=== PATIENT | female | born 1970 | race Caucasian/White ===

== ENCOUNTER → 2020-04-20 | Outpatient (CLI) | payer OTHER ==
[2020-04-20 15:21] LABS: ABSOLUTE NEUTROPHILS 4.7 thou/uL (1.4-8.2); BASOPHILS 0.6 % (0.0-2.0); EOSINOPHILS 1.1 % (0.0-3.0); HEMATOCRIT 41.1 % (37.0-47.0); HEMOGLOBIN 14.1 gm/dL (12.0-15.0); LYMPHOCYTES 32.9 % (24.0-44.0); MCH 30.3 pg (26.0-34.0); MCHC 34.3 g/dL (28.0-37.0); MCV 88.5 fL (80.0-100.0); MONOCYTES 8.7 % (1.0-8.0); PLATELET COUNT 422 thou/uL (150-400); POLYS 56.7 % (36.0-66.0); RBC 4.65 mil/uL (4.20-5.00); RDW 12.9 % (10.5-14.5); WBC 8.3 thou/uL (4.0-11.0)
[2020-04-20 19:39] LABS: ALBUMIN 4.4 g/dL (3.4-5.0); ANION GAP 7 mmol/L (7-16); BUN 23 mg/dL (7-18); CALCIUM 9.6 mg/dL (8.5-10.1); CHLORIDE 95 mmol/L (98-107); CHOLESTEROL 307 mg/dL (<200); CO2 32 mmol/L (21-32); CREATININE 1.7 mg/dL (0.6-1.0); GLUCOSE 83 mg/dL (74-106); HDL CHOLESTEROL 86 mg/dL (>40); LDL CHOLESTEROL 176 mg/dL (<100); SGOT 16 U/L (15-37); SGPT 18 U/L (30-65); SODIUM 134 mmol/L (136-145); TC:HDL 3.6 Ratio (Not establshd); TOTAL BILIRUBIN 0.4 mg/dL (0.2-1.0); TOTAL PROTEIN 8.5 g/dL (6.4-8.2); TRIGLYCERIDE 228 mg/dL (<150); VLDL 46 mg/dL (<40)
[2020-04-20 19:57] LABS: POTASSIUM 2.9 mmol/L (3.5-5.1)
== END ==
LOC: LAB 14:07
PROVIDERS: ATTEND Nurse Practitioner
DX: M25.511 Pain in right shoulder (principal)

== ENCOUNTER → 2020-08-24 | Outpatient (CLI) | payer OTHER | LOC: RAD 15:16 | PROVIDERS: ATTEND Nurse Practitioner | DX: M47.22 Other spondylosis with radiculopathy, cervical region (principal); M25.78 Osteophyte, vertebrae; M48.02 Spinal stenosis, cervical region ==

== ENCOUNTER → 2020-09-07 | Outpatient (CLI) | payer OTHER ==
[~2020-09-07] MED LIST: EMERGEN-C 1,01000 MG PO; IBUPROFEN 400400 M1 PO; IMITREX100 MG PO; LEXAPRO 10 MG T10 M1 PO; NEURONTIN 300M300 M2 PO
== END ==
LOC: MRI 10:34
PROVIDERS: ATTEND Nurse Practitioner
DX: M48.02 Spinal stenosis, cervical region (principal); M89.38 Hypertrophy of bone, other site; M54.12 Radiculopathy, cervical region; M54.2 Cervicalgia; R29.898 Other symptoms and signs involving the musculoskeletal system

== ENCOUNTER → 2020-09-12 | Outpatient (CLI) | payer OTHER ==
[~2020-09-12] VITALS: Ht 157.5 cm; Wt 45.4 kg
--- NOTE | ~2020-09-12 | HPC ---
[facility] [place] [address] PAIN MANAGEMENT CONSULTATION Name: PADMA MORENO Room #: REG [facility] Letha.#: [id number] Admission: 09/12/20 Attend Phys: Ross Rendon DO Discharge: Date of : 74 Report #: [id number] CC: Ross GRIMALDO DATE OF SERVICE: 09/12/2020 CHIEF COMPLAINT: Neck pain, upper back pain, right upper extremity pain with paresthesias. HISTORY OF PRESENT ILLNESS: As you know, the patient is an extremely pleasant 50-year-old female referred to the clinic for neck pain, right upper extremity pain with paresthesias and upper back pain. The patient states that pain has been present for years. The pain initially began as more cervical and bilateral trapezial pain, but has progressed towards more right shoulder and now down the right arm in classic dermatomal distribution. She has had workup in the past involving the possible rotator cuff injury in the right shoulder. Apparently, this has been ruled out. She has ultimately undergone MRI of the cervical spine, which showed changes, significant enough, the patient was referred to our clinic to discuss interventional treatment options. The patient reports today her pain is continuous with intermittent exacerbations and flares. She states pain is described more as a burning, shooting, gnawing, sharp, tender, numbness and tingling. She places current pain score anywhere from 3-4/10, daily average anywhere from 3-4/10 worst pain has been is 8-9/10. The patient indicates pain is exacerbated with upper body exercises, riding in vehicles for long periods of time, sitting at a computer, excessive lifting and "craning her neck." Pain is improved with the use of Imitrex, lying flat traction techniques and massage. She has been referred to our service to discuss treatment options for cervical radiculopathy. PAST MEDICAL HISTORY: 1. History of hypokalemia. 2. Migraine headaches. 3. History of wrist fractures. 4. Emotional problems. 5. Gastroesophageal reflux disease. PAST SURGICAL HISTORY: 1. Tonsillectomy and adenoidectomy. 2. Dental implants. SOCIAL HISTORY: The patient denies tobacco use. Denies IV or illicit drug use. Admits to occasional alcohol beverage. She is employed as a registered nurse. She is working, not receiving workmen's compensation nor is she trying to obtain disability benefits. She is not in litigation in regards to pain. She is unaccompanied at today's visit. REVIEW OF SYSTEMS: Positive for nose bleeds, irritable bowel syndrome with intermittent constipation, varicose veins, frequent and recurrent headaches and migraines, depression, neck pain, upper back pain and right upper extremity pain with paresthesias. All other review of systems negative per 12-point review of systems other than those listed in history of present illness. Pain impact score 17 of 70 indicating mild interference of daily activities secondary to pain. ALLERGIES: BENADRYL AND NEOMYCIN. CURRENT MEDICATIONS: Ascorbic acid 1000 mg once a day, ibuprofen 400 mg p.r.n., sumatriptan 100 mg p.r.n., escitalopram 10 mg once a day. IMAGING: MRI cervical spine obtained 09/07/2020 shows C2-C3 unremarkable, C3-C4 shows minimal disk bulge, no central canal nor neural foraminal stenosis. C4-C5, mild generalized disk bulge with slight effacement of the ventral thecal sac without central canal stenosis, moderate right neural foraminal narrowing due to facet arthropathy and uncovertebral joint hypertrophy. This is near the exiting C5 nerve root. No significant left foraminal narrowing. C5-C6, mild generalized disk osteophyte complex causing effacement of the ventral thecal sac not touching the cord. Central canal remains 10 mm. There is severe neural foraminal stenosis present due to uncovertebral joint hypertrophy bilaterally compromising the exiting C6 nerve roots bilaterally. C6-C7 shows mild generalized disk bulge, no central canal stenosis, moderate left neural foraminal narrowing. There is only mild right neural foraminal narrowing. C7-T1 unremarkable. PHYSICAL EXAMINATION: VITAL SIGNS: Blood pressure 108/90, pulse is 93, respiratory rate 14 and unlabored. The patient is 99% on room air. Height 5 feet 2 inches tall, weight 100 pounds, BMI calculated 18.3. GENERAL: Well-developed, well-nourished, well-hydrated 50-year-old female appearing her stated age. She is in no acute distress, awake, alert and oriented x 3. Current pain score is 3-4/10. HEENT: Normocephalic, atraumatic. Pupils equal, round and reactive to light. Extraocular muscles are intact. Sclerae nonicteric without injection. No anisocoria. Pupils are reactive and not dilated or constricted. LUNGS: Clear, no wheeze, rhonchi or rales. CARDIOVASCULAR: Appears regular. ABDOMEN: Soft. EXTREMITIES: Show no clubbing, no cyanosis, no edema. MUSCULOSKELETAL: Upper extremity strength appears symmetrical 5/5, intact to light touch from C5 through T1 dermatomes. Deep tendon reflexes are symmetrical at biceps, brachialis and triceps. Spurling's test is positive on the right. Cervical provocation testing including extension, rotation to the right cause intensification of pain radiation of symptoms in a dermatomal distribution. There is palpatory tenderness over the paraspinal musculature of the upper thoracic musculature of the rhomboids, the trapezius and the splenius capitis. There is no spinous process tenderness. ASSESSMENT: 1. Cervical radiculopathy. 2. Severe neural foraminal stenosis of the cervical spine. 3. Facet arthropathy of cervical spine. 4. Displacement of cervical intervertebral disk with radiculopathy. 5. Cervical degeneration. PLAN: 1. Based on today's physical exam and history the patient has provided, the description the patient uses in regards to pain as well as the distribution she is experiencing pain upon, the likely source of the patient's pain is a cervical radiculopathy. The patient reports pain that radiates from the cervical spine down both arms, right greater than left, all the way to the thumb and first digit consistent with a C6 dermatomal distribution. This is confirmed with recent MRI, which shows severe neural foraminal stenosis at the C5-C6 level with impingement upon the C6 nerve roots bilaterally. We reviewed the patient's MRI with her today and correlated to the findings of this MRI to her current distribution of symptoms. After this discussion of how the findings in the cervical region equate to the distribution of pain she is experiencing in the right upper extremity and intermittent in the left, we then discussed treatment options. The following was discussed with the patient today. We discussed physical therapy, stretching exercises and traction techniques as a treatment course. This could improve overall pain as her symptoms are related to neural foraminal stenosis secondary to uncovertebral hypertrophy and any traction techniques may actually improves symptoms for a transient period of time and maybe with long-term use even a protracted period of time. We discussed medication management adding neuropathic pain medications such as amitriptyline, nortriptyline, Cymbalta, Lyrica or gabapentin as a treatment option. We discussed cervical epidural injections under fluoroscopic guidance and finally surgical options to address foraminal stenosis. After reviewing the risks and benefits of all proposed treatment options, the patient chose to begin with medication management and a cervical epidural injection. 2. The patient has been advised risks and benefits of a cervical epidural injection. These risks include but are not necessarily limited to bleeding, bruising, infection, worsening pain, no relief of pain, also risk of temporary or permanent muscle weakness, temporary or permanent nerve damage, possible paralysis, post-dural puncture headache and . The patient states understood and wished to proceed. 3. The patient will start gabapentin 300 mg dose 1 tab p.o. at bedtime for 3 nights. If no side effects such as sleepiness, disorientation, confusion, mental slowing and no improvement in symptoms, escalate the dose to 600 mg for 3 nights. Again if no improvement in symptoms and no side effects, then escalate to 900 mg at night. If continued to experience the pain during the daytime hours then after a 9-day trial of medication with escalating doses in the evening. She will then start morning doses 1 tab p.o. q.a.m. continuing the 900 mg at night for 3 days, escalating dose until reaching efficacy or side effects she could not tolerate. She was given #120 of the gabapentin 300 mg tablets in a titration in written form to follow in hopes of improving pain. Prescription was sent via e-scribed to local pharmacy. 4. We plan to see the patient back in followup visit in 1 month for possible next in the series of cervical epidural injections and to make any adjustments in medication management necessary. We are hopeful the patient does very well with combination of treatment. We plan to see her back in 30 days. 5. We wish to thank Dr. Sheila Hamm for the referral of the patient to our clinic. We will keep you apprised of her response to treatment as we address cervical radiculopathy secondary to severe neural foraminal stenosis at the C5-C6 level. Again, we wish to thank you for the opportunity to see this patient in consultation. PROCEDURE NOTE DESCRIPTION OF PROCEDURE: C7-T1 cervical epidural steroid injection under fluoroscopic guidance. This is the first procedure of the first series that the patient is undergoing. After obtaining written consent, the patient was taken back to the fluoroscopy suite and placed in a prone position with separate pillows under chest and forehead to decrease the cervical lordosis. The skin overlying the cervical area was prepped and draped in an aseptic fashion. The C6-C7 vertebral interspace was identified by AP fluoroscopy. The skin and subcutaneous tissue overlying the target site of injection was anesthetized using 3 mL of 1% lidocaine. A 20-gauge, 3-1/2 inch Tuohy needle was advanced under fluoroscopic guidance toward the epidural space using a midline approach. The epidural space was identified using a loss of resistance to air technique. After negative aspiration for heme or cerebrospinal fluid, a total of 1 mL of Omnipaque was injected. A cervical epidurogram was confirmed using AP and oblique fluoroscopy. After negative aspiration for heme or cerebrospinal fluid, 5 mL of a solution containing 2 mL of 40 mg per mL, 80 mg total triamcinolone along with 3 mL of lidocaine 1% was injected in increments. Contrast spread was noted from posterior epidural space. The needle was then retracted approximately shelter and the needle track was flushed with 1 mL of 1% lidocaine. There were no apparent new sensory deficits in the upper extremities present following the procedure. A sterile bandage was placed over the injection site. The heart rate, pulse oximetry and blood pressure were continuously monitored after the procedure. There were no apparent complications. The patient tolerated the procedure well and was carefully escorted in the recovery room in stable condition. After meeting discharge criteria, the patient was discharged home. By: [id number] Ross Rendon DO /caden
[2020-09-12 15:17] VITALS: BP 108/90
--- NOTE | 2020-09-12 15:26 | NUR ---
Pain Clinic Assessment: 1. History of Osteoarthritis: C SPINE History of Rheumatoid Arthritis: Not Applicable 2. Height: 5 ft. 2 in. 157.5 cm. Weight: 100.0 lb. oz. 45.360 kg. Patient's BMI: 18.3 3. Vital Signs: BP: 108/90 Pulse: 93 Resp: 14 Temp: 02 Sat: 99 ECG Mon: 4. Pain Intensity: 3-4 5. Fall Risk: Dizziness: Needs help standing or walking: Fallen in the last 3 months: Fall risk comments: 6. Patient on Blood Thinner: None 7. History of Hypertension: N 8. Opioid Therapy greater than 6 weeks: N Opiate Contract Signed: 9. Risk Assessment Tool Provided: 10. Functional Assessment Tool: 11. Recreational Drug Use: Never Drug Type: Tobacco Use: Never Smoker Tobacco Type: Amount or Packs/day: How Many Years: Alcohol Use: Yes Frequency: Weekly Quant: 1-2
== END | disposition home or self-care (01) ==
LOC: PAIN 07:00
PROVIDERS: ATTEND Anesthesiology Pain Medicine
DX: M50.10 Cervical disc disorder with radiculopathy, unspecified cervical region (principal); M47.22 Other spondylosis with radiculopathy, cervical region; M48.02 Spinal stenosis, cervical region; G89.29 Other chronic pain; F32.9 Major depressive disorder, single episode, unspecified; G43.909 Migraine, unspecified, not intractable, without status migrainosus; K21.9 Gastro-esophageal reflux disease without esophagitis; Z98.890 Other specified postprocedural states; Z79.899 Other long term (current) drug therapy; Z88.8 Allergy status to other drugs, medicaments and biological substances

== ENCOUNTER → 2020-10-31 | Outpatient (CLI) | payer OTHER ==
[~2020-10-31] MED LIST changes: +GABAPENTIN100 MG PO
[2020-10-31 15:47] VITALS: BP 127/95
--- NOTE | 2020-10-31 15:53 | NUR ---
Pain Clinic Assessment: 1. History of Osteoarthritis: C SPINE History of Rheumatoid Arthritis: Not Applicable 2. Height: ft. in. cm. Weight: lb. oz. kg. Patient's BMI: 3. Vital Signs: BP: 127/95 Pulse: 75 Resp: 14 Temp: 02 Sat: 99 ECG Mon: 4. Pain Intensity: 3-4 5. Fall Risk: Dizziness: N Needs help standing or walking: N Fallen in the last 3 months: N Fall risk comments: 6. Patient on Blood Thinner: None 7. History of Hypertension: N 8. Opioid Therapy greater than 6 weeks: N Opiate Contract Signed: 9. Risk Assessment Tool Provided: 10. Functional Assessment Tool: 11. Recreational Drug Use: Never Drug Type: Tobacco Use: Never Smoker Tobacco Type: Amount or Packs/day: How Many Years: Alcohol Use: Yes Frequency: Quant:
--- NOTE | 2020-11-05 10:13 | HPC ---
[facility] [address] [email or web address] [address] PAIN MANAGEMENT CONSULTATION Name: PADMA MORENO Room #: REG Est[facility] Jenkins#: [id number] Admission: 10/31/20 Attend Phys: Ross Rendon DO Discharge: Date of : 74 Report #: [id number] THIS REPORT FOR: cc: Sheila Hamm DNP, Mary E. DNP Johnson, James E. DO ~ DATE OF SERVICE: 10/31/2020 CHIEF COMPLAINT: Neck pain, upper back pain, right upper extremity pain with paresthesias. HISTORY OF PRESENT ILLNESS: As you know, the patient is an extremely pleasant 50-year-old female who has returned today in followup visit with recurrence of cervical radiculopathy. She is placing her current pain score at 3-4/10. She reports with the previous cervical epidural injection provided at our visit of 09/12/2020, she received 75% improvement in overall pain. Unfortunately, her symptoms have begun to slowly reoccur. She believes she may have done something during her exercise routine that may have exacerbated her symptoms. She returns today to undergo a cervical epidural injection. She is indicating pain is constant, burning pressure, radiating, sharp and shooting, exacerbated with upper body exercise, a long car ride, sitting at a computer "craning her neck" and lifting, improves with medications, lying down, traction, massage and cervical epidural injections. She returns today for the next in the series of cervical epidural injections. She is denying injury or trauma or any changes in medical history. ALLERGIES: BENADRYL AND NEOMYCIN. CURRENT MEDICATIONS: Ascorbic acid, ibuprofen, sumatriptan, escitalopram. SOCIAL HISTORY: The patient denies tobacco, denies IV or illicit drug use. Admits occasional alcohol beverage. She is employed as a registered nurse, working, not receiving workmen's compensation, unaccompanied today. IMAGING: No new imaging available. PHYSICAL EXAMINATION: VITAL SIGNS: Blood pressure 127/95, pulse 75, respiratory rate 14 and unlabored. The patient is 99% on room air. GENERAL: Well-developed, well-nourished, well-hydrated, thin, 50-year-old female appearing stated age. She is placing current pain score at 3-4/10. HEENT: Normocephalic, atraumatic. Pupils are equal and round. The patient is wearing a mask in compliance with COVID-19 regulations. EXTREMITIES: Show no clubbing, no cyanosis. No appreciable edema. MUSCULOSKELETAL: Deep tendon reflexes remain symmetrical at biceps, brachioradialis and triceps. Spurling's test positive on the right. [address] [address] PAIN MANAGEMENT CONSULTATION Name: GOYOEmmaPADMA Room #: REG [facility].#: [id number] Admission: 10/31/20 Attend Phys: Ross Rendon DO Discharge: Date of : 74 Report #: [id number] extremity strength is symmetrical 5/5, intact to light touch from C5 through T1 dermatomes. ASSESSMENT: 1. Symptomatic cervical radiculopathy. 2. Severe neural foraminal stenosis of the cervical spine. 3. Facet arthropathy of cervical spine. 4. Displacement of cervical intervertebral disk with radiculopathy. 5. Cervical degeneration. PLAN: 1. The patient returns today in followup visit having noted excellent benefit with previous cervical epidural injection reporting up to 75% improvement in overall pain. Unfortunately, her symptoms have begun to return. She is now placing pain score at a level of 3-4/10. She returns today in followup visit for the next in the series of cervical epidural injections. The patient and I discussed the risks and the benefits of the procedure. These risks include, but are not necessarily limited to bleeding, bruising, infection, worsening pain, no relief of pain, also risk of temporary or permanent muscle weakness, temporary or permanent nerve damage, possible paralysis and . The patient states understood and wished to proceed. 2. No medication changes made at today's visit. The patient will continue current medical therapy as prior prescribed. 3. We will see the patient back in followup visit on an as-needed basis for possible next in the series of cervical epidural injections. We are hopeful that the patient will see good and prolonged benefit with today's cervical injection. DESCRIPTION OF PROCEDURE: C7-T1 cervical epidural steroid injection under fluoroscopic guidance. This is the second procedure of the first series that the patient is undergoing. After obtaining written consent, the patient was taken back to the fluoroscopy suite and placed in a prone position with separate pillows under chest and forehead to decrease cervical lordosis. The skin overlying the cervical area was prepped and draped in an aseptic fashion. The C7-T1 vertebral interspace was identified by AP fluoroscopy. The skin and subcutaneous tissue overlying the target site of injection was anesthetized using 3 mL of 1% lidocaine. A 20-gauge 3-1/2 inch Tuohy needle was advanced under fluoroscopic guidance toward the epidural space using a midline approach. The epidural space was identified using a loss of resistance to air technique. After negative aspiration for heme or cerebrospinal fluid, a total of 1 mL of Omnipaque was injected. A cervical epidurogram was confirmed using AP and oblique fluoroscopy. After negative aspiration for heme or cerebrospinal fluid, 5 mL of [address] [address] PAIN MANAGEMENT CONSULTATION Name: PADMA MORENO Room #: REG [facility]#: [id number] Admission: 10/31/20 Attend Phys: Ross Rendon DO Discharge: Date of : 74 Report #: [id number] a solution containing 2 mL 40 mg per mL, 80 mg total triamcinolone along with 3 mL lidocaine 1% was injected in increments. Contrast spread was noted from posterior epidural space. The needle was then retracted approximately assisted and the needle track was flushed with 1 mL of 1% lidocaine. There were no apparent new sensory deficits in the upper extremities present following the procedure. A sterile bandage was placed over the injection site. The heart rate, pulse oximetry and blood pressure were continuously monitored after the procedure. There were no apparent complications. The patient tolerated the procedure well and was carefully escorted in the recovery room in stable condition. After meeting discharge criteria, the patient was discharged home. <ELECTRONICALLY SIGNED> By: Ross Rendon DO 11/05/20 [id number] [id number] 40 Ross Rendon DO /nt
== END | disposition home or self-care (01) ==
LOC: PAIN 06:59
PROVIDERS: ATTEND Anesthesiology Pain Medicine
DX: M50.10 Cervical disc disorder with radiculopathy, unspecified cervical region (principal); M48.02 Spinal stenosis, cervical region; M47.22 Other spondylosis with radiculopathy, cervical region; Z98.890 Other specified postprocedural states; Z79.899 Other long term (current) drug therapy; Z88.8 Allergy status to other drugs, medicaments and biological substances

== ENCOUNTER → 2020-12-05 | Outpatient (CLI) | payer OTHER ==
[2020-12-05 09:00] LABS: CALCIUM 9.5 mg/dL (8.5-10.1); CREATININE 1.7 mg/dL (0.6-1.0); TOTAL BILIRUBIN 0.3 mg/dL (0.2-1.0); TOTAL PROTEIN 7.9 g/dL (6.4-8.2)
[2020-12-05 09:11] LABS: POTASSIUM 2.6 mmol/L (3.5-5.1)
[2020-12-05 15:54] LABS: ABSOLUTE NEUTROPHILS 4.3 thou/uL (1.4-8.2); BASOPHILS 0.9 % (0.0-2.0); EOSINOPHILS 1.5 % (0.0-3.0); HEMATOCRIT 40.8 % (37.0-47.0); HEMOGLOBIN 13.1 gm/dL (12.0-15.0); LYMPHOCYTES 32.4 % (24.0-44.0); MCH 29.6 pg (26.0-34.0); MCV 92.5 fL (80.0-100.0); MONOCYTES 9.9 % (1.0-8.0); PLATELET COUNT 399 thou/uL (150-400); POLYS 55.3 % (36.0-66.0); RBC 4.41 mil/uL (4.20-5.00); RDW 13.3 % (10.5-14.5); WBC 7.7 thou/uL (4.0-11.0)
== END ==
LOC: LAB 08:08
PROVIDERS: ATTEND Obstetrics & Gynecology
DX: Z01.419 Encounter for gynecological examination (general) (routine) without abnormal findings (principal)

== ENCOUNTER → 2020-12-18 | Outpatient (CLI) | payer OTHER | LOC: ULTRA 12-11 14:19 | PROVIDERS: ATTEND Obstetrics & Gynecology | DX: N93.9 Abnormal uterine and vaginal bleeding, unspecified (principal) ==

== ENCOUNTER → 2021-01-29 | Outpatient (CLI) | payer OTHER ==
[~2021-01-29] VITALS: Ht 157.5 cm; Wt 45.4 kg
[~2021-01-29] MED LIST changes: +LYRICA 50 MG50 MG PO
[2021-01-29 14:28] VITALS: BP 128/90
--- NOTE | 2021-01-29 14:33 | NUR ---
Pain Clinic Assessment: 1. History of Osteoarthritis: C SPINE History of Rheumatoid Arthritis: Not Applicable 2. Height: 5 ft. 2 in. 157.5 cm. Weight: 100.0 lb. oz. 45.360 kg. Patient's BMI: 18.3 3. Vital Signs: BP: 128/90 Pulse: 79 Resp: 18 Temp: 02 Sat: 99 ECG Mon: 4. Pain Intensity: 5 5. Fall Risk: Dizziness: N Needs help standing or walking: N Fallen in the last 3 months: Y Fall risk comments: 6. Patient on Blood Thinner: None 7. History of Hypertension: N 8. Opioid Therapy greater than 6 weeks: N Opiate Contract Signed: 9. Risk Assessment Tool Provided: LOW-1 10. Functional Assessment Tool: 11. Recreational Drug Use: Never Drug Type: Tobacco Use: Never Smoker Tobacco Type: Amount or Packs/day: How Many Years: Alcohol Use: Yes Frequency: Quant:
--- NOTE | 2021-01-30 08:12 | HPC ---
[facility] [address] [place] [address] PAIN MANAGEMENT CONSULTATION Name: PADMA MORENO Room #: REG [facility]#: [id number] Admission: 01/29/21 Attend Phys: Ross Rendon DO Discharge: Date of : 74 Report #: [id number] THIS REPORT FOR: cc: Sheila Hamm DNP, Mary E. DNP Johnson, James E. DO ~ DATE OF SERVICE: 01/29/2021 CHIEF COMPLAINT: Neck pain, upper back pain, right upper extremity pain with paresthesias. HISTORY OF PRESENT ILLNESS: As you know, the patient is a very pleasant 51-year-old female returning in followup visit with recurrence of cervical radicular symptoms involving the neck and right upper extremity. She is placing pain score around 5/10. She describes the pain as constant, burning pressure radiating, sharp and shooting when describing symptoms. Pain is exacerbated with upper body exercise, long car ride, sitting at the computer, craning her neck and lifting. Pain is improved with medications, lying down, traction, massage therapy and cervical epidural injections. The patient reports previous cervical epidural injection gave 60% improvement in overall pain lasting for greater than 2 months. She is very pleased with response to this injection, returning today to undergo the next in the series. She denies any new injury or trauma that may have led to symptom reoccurrence. She does note exacerbation of symptoms mainly with upper body exercises that she has been participating in of late. ALLERGIES: BENADRYL AND NEOMYCIN. CURRENT MEDICATIONS: Ascorbic acid, ibuprofen, sumatriptan, escitalopram and gabapentin. SOCIAL HISTORY: The patient denies tobacco, IV or illicit drug use. She admits occasional alcohol beverage. She is employed as a registered nurse, working, not receiving workmen's compensation, unaccompanied today. IMAGING: No new imaging available. PHYSICAL EXAMINATION: VITAL SIGNS: Blood pressure 128/90, pulse 79, respiratory rate 18 and unlabored. The patient is 99% on room air. Height 5 feet 2 inches tall, weight 100 pounds, BMI calculated 18.3. GENERAL: Well-developed, well-nourished, well-hydrated 51-year-old female appearing her stated age, pain is rated today 5/10. HEENT: Normocephalic, atraumatic. Pupils equal, round and reactive. EXTREMITIES: Show no clubbing, no cyanosis, no edema. MUSCULOSKELETAL: Upper extremity strength remains symmetrical 5/5. She has [facility] [address] [place] [address] PAIN MANAGEMENT CONSULTATION Name: PADMA MORENO Room #: REG [facility]#: [id number] Admission: 01/29/21 Attend Phys: Ross Rendon DO Discharge: Date of : 74 Report #: [id number] excellent service desk specialist strength bilaterally. Spurling's test positive left, negative right. Muscle bulk and tone is equal and symmetrical in upper extremities. Remains intact to light touch. ASSESSMENT: 1. Symptomatic cervical radiculopathy. 2. Severe neural foraminal stenosis of the cervical spine. 3. Facet arthropathy of the cervical spine. 4. Displacement of cervical intervertebral disk with radiculopathy. 5. Cervical degeneration. PLAN: 1. The patient returns today in followup visit requesting to undergo a cervical epidural injection under fluoroscopic guidance. The patient reports excellent benefit with the cervical epidural injection at her last visit reporting 60% improvement in pain or greater. Unfortunately, her symptoms have begun to return. She returns today in followup visit to undergo next in the series of cervical epidural injections. She has been advised risks and benefits of the procedure. She states understood and wished to proceed. 2. The patient was provided a prescription of Lyrica 50 mg dose 1 tab p.o. at bedtime for the next 7 nights, then increase to 2 tabs p.o. at bedtime for 7 nights. If no side effects including somnolence, decrease mental acuity, disorientation or confusion, then escalate the dose to 1 tab in the morning and 2 tablets at night. She was given #90 tablets. She will discontinue her gabapentin at this time if she is experiencing side effects to the medication. We are hopeful she will see less side effects with the Lyrica, but gain analgesic benefit and improvement in overall side effects symptoms. A prescription was sent via [facility] to local pharmacy with refills. 3. We will see the patient back in followup visit on an as needed basis for the next in the series of cervical epidural injections. We are hopeful the patient will once again see good and prolonged benefit with today's procedure. PROCEDURE NOTE DESCRIPTION OF PROCEDURE: C7-T1 cervical epidural steroid injection under fluoroscopic guidance. This is the third procedure of the first series that the patient is undergoing. After obtaining written consent, the patient was taken back to the fluoroscopy suite and placed in a prone position with separate pillows under chest and forehead to decrease cervical lordosis. The skin overlying the cervical area was prepped and draped in an aseptic fashion. The C7-T1 vertebral interspace was identified by AP fluoroscopy. The skin and subcutaneous tissue overlying the target site of injection was anesthetized using 3 mL of 1% lidocaine. [address] [address] PAIN MANAGEMENT CONSULTATION Name: PADMA MORENO Room #: REG [facility]#: [id number] Admission: 01/29/21 Attend Phys: Ross Rendon DO Discharge: Date of : 74 Report #: [id number] A 20 gauge 3-/12 Tuohy needle was advanced under fluoroscopic guidance toward the epidural space using a paramedian approach. The epidural space was identified using a loss of resistance to air technique. After negative aspiration for heme or cerebrospinal fluid, a total of 1 mL of Omnipaque was injected. A cervical epidurogram was confirmed using AP and oblique fluoroscopy. After negative aspiration for heme or cerebrospinal fluid, 5 mL of solution containing 2 mL 40 mg per mL, 80 mg total triamcinolone along with 3 mL lidocaine 1% was injected in increments. Contrast spread was noted from posterior epidural space. The needle was then retracted approximately care home and the needle track was flushed with 1 mL of 1% lidocaine. There were no apparent new sensory deficits in the upper extremities present following the procedure. A sterile bandage was placed over the injection site. The heart rate, pulse oximetry and blood pressure were continuously monitored after the procedure. There were no apparent complications. The patient tolerated the procedure well and was carefully escorted in the recovery room in stable condition. After meeting discharge criteria, the patient was discharged home. <ELECTRONICALLY SIGNED> By: Ross Rendon DO 01/30/21 0812 1605 45 Ross Rendon DO /nt
== END | disposition home or self-care (01) ==
LOC: PAIN 06:56
PROVIDERS: ATTEND Anesthesiology Pain Medicine
DX: M50.10 Cervical disc disorder with radiculopathy, unspecified cervical region (principal); M48.02 Spinal stenosis, cervical region; M47.22 Other spondylosis with radiculopathy, cervical region; G89.29 Other chronic pain; Z98.890 Other specified postprocedural states; Z79.899 Other long term (current) drug therapy

== ENCOUNTER → 2021-03-19 | Outpatient (CLI) | payer OTHER ==
[~2021-03-19] VITALS: Ht 157.5 cm; Wt 45.4 kg
[2021-03-19 14:38] VITALS: BP 129/89
--- NOTE | 2021-03-19 14:41 | NUR ---
Pain Clinic Assessment: 1. History of Osteoarthritis: C SPINE History of Rheumatoid Arthritis: Not Applicable 2. Height: 5 ft. 2 in. 157.5 cm. Weight: 100.0 lb. oz. 45.360 kg. Patient's BMI: 18.3 3. Vital Signs: BP: 129/89 Pulse: 97 Resp: 16 Temp: 02 Sat: 99 ECG Mon: 4. Pain Intensity: 3 5. Fall Risk: Dizziness: N Needs help standing or walking: N Fallen in the last 3 months: N Fall risk comments: 6. Patient on Blood Thinner: None 7. History of Hypertension: N 8. Opioid Therapy greater than 6 weeks: N Opiate Contract Signed: 9. Risk Assessment Tool Provided: LOW-1 10. Functional Assessment Tool: 11. Recreational Drug Use: Never Drug Type: Tobacco Use: Never Smoker Tobacco Type: Amount or Packs/day: How Many Years: Alcohol Use: Yes Frequency: Weekly Quant: 6
--- NOTE | 2021-03-20 07:59 | HPC ---
[facility] [place] [address] PAIN MANAGEMENT CONSULTATION Name: PADMA MORENO [facility]: [facility] [id number] Admission: 03/19/21 Attend Phys: Ross Rendon DO Discharge: Date of : 74 Report #: [id number] THIS REPORT FOR: cc: Sheila Hamm DNP, Mary E. DNP Johnson, James E. DO ~ DOC #: [id number] DATE OF SERVICE: 03/19/2021 DATE OF SERVICE: 03/19/2021 REFERRING PHYSICIAN: Sheila Hamm NP CHIEF COMPLAINT: Neck pain, right upper extremity pain with paresthesias. HISTORY OF PRESENT ILLNESS: As you know, the patient is an extremely pleasant 51-year-old female returning in followup visit with recurrence of cervical radicular symptoms involving the neck, right upper extremity. She is placing her current pain score at 3/10. She indicates no injury or trauma that may led to symptom development. She has been participating in daily activities and continues to participate in her exercise program. She believes that her symptoms may be exacerbated with certain activities during her exercise program such as side planks, which put strain on the area. She has had recurrence of symptoms, no inciting injury or trauma. She was placing current pain score 3/10. She returns today in followup visit requesting to undergo cervical epidural injection under fluoroscopic guidance and discuss other treatment options if available. ALLERGIES: BENADRYL AND NEOMYCIN. CURRENT MEDICATIONS: Ascorbic acid, ibuprofen, sumatriptan, escitalopram and gabapentin. SOCIAL HISTORY: The patient denies tobacco, IV or illicit drug use. Admits to occasional alcohol beverage. She is employed as a registered nurse, working, not receiving workmen's compensation, unaccompanied today. IMAGING: No new imaging available. PHYSICAL EXAMINATION: VITAL SIGNS: Blood pressure 129/89, pulse is 97, respiratory rate 16 and unlabored. The patient 97% on room air. Height 5 feet 2 inches tall, weight 100 pounds, BMI calculated 18.3. GENERAL: Well-developed, well-nourished, well-hydrated 51-year-old female appearing stated age, pain is rated today at 3/10. [address] [address] PAIN MANAGEMENT CONSULTATION Name: PADMA MORENO Room #: REG [facility]#: [id number] Admission: 03/19/21 Attend Phys: Ross Rendon DO Discharge: Date of : 74 Report #: [id number] HEENT: Normocephalic, atraumatic. Pupils equal, round and responsive to light. She is wearing a mask in compliance with COVID-19 regulations. EXTREMITIES: Show no clubbing, no cyanosis, no edema. MUSCULOSKELETAL: Spurling's test remains positive. The muscle bulk and tone in the upper extremities equal and symmetrical. Intact to light touch from C5 through T1 dermatomes. Butter Fat Tester strength remains normal. Deep tendon reflexes are unchanged and symmetrical. ASSESSMENT: 1. Symptomatic cervical radiculopathy. 2. Severe neural foraminal stenosis of the cervical spine. 3. Displacement of cervical intervertebral disk with radiculopathy. 4. Facet arthropathy of cervical spine. 5. Cervical degeneration. PLAN: 1. The patient returns today in followup visit to discuss treatment options to address cervical radiculopathy. We had tried the patient on conservative medication management in the form of Lyrica, which unfortunately caused side effects, but did not provide much in the way of improvement. We moved onto epidural injections for which the patient does receive good benefit, the most recent providing 70% improvement in overall pain with a slow and progressive return of symptoms without inciting injury or trauma. She returns requesting the next in the series of these cervical epidural injections. She has been advised the risks and benefits of the procedure, states understood and wished to proceed. 2. The patient has noted some improvement with traction techniques in the past. We would recommend the patient continue with traction at home. We will be providing her a prescription for cervical traction device. We will recommend a very specific type of device and gave her information today. We will set the patient for a traction device fitting and training. She can then do the traction up to 2-3 times a day if she felt it was beneficial. Prescription was provided to the patient in written form requesting the traction device to be provided for home use. 3. No medication changes made at today's visit. The patient will continue current medical therapy as prior prescribed. 4. We will plan to see the patient back in followup visit on an as needed basis. We are hopeful the combination of cervical epidural injection and the use of home traction would be of great benefit for the patient. She will keep us apprised of response. DESCRIPTION OF PROCEDURE: C7-T1 cervical epidural steroid injection under fluoroscopic guidance. This is the first procedure of the second series that the patient is undergoing. [facility] [address] [place] [address] PAIN MANAGEMENT CONSULTATION Name: PDAMA MORENO Room #: REG [facility] Letha#: [id number] Admission: 03/19/21 Attend Phys: Ross Rendon DO Discharge: Date of : 74 Report #: [id number] After obtaining written consent, the patient was taken back to the fluoroscopy suite and placed in a prone position with separate pillows under chest and forehead to decrease cervical lordosis. The skin overlying the cervical area was prepped and draped in an aseptic fashion. The C7-T1 vertebral interspace was identified by AP fluoroscopy. The skin and subcutaneous tissue overlying the target site of injection was anesthetized using 3 mL of 1% lidocaine. A 20-gauge 3-1/2 inch Tuohy needle was advanced under fluoroscopic guidance toward the epidural space using a midline approach. The epidural space was identified using a loss of resistance to air technique. After negative aspiration for heme or cerebrospinal fluid, a total of 0.5 mL of Omnipaque was injected. A cervical epidurogram was confirmed using AP and oblique fluoroscopy. After negative aspiration for heme or cerebrospinal fluid, 5 mL of a solution containing 2 mL 40 mg per mL 80 mg total triamcinolone along with 3 mL of lidocaine 1% was injected in increments. Contrast spread was noted from posterior epidural space. The needle was then retracted approximately intermediate and the needle track was flushed with 1 mL of 1% lidocaine. There were no apparent new sensory deficits in the upper extremities present following the procedure. A sterile bandage was placed over the injection site. The heart rate, pulse oximetry and blood pressure were continuously monitored after the procedure. There were no apparent complications. The patient tolerated the procedure well and was carefully escorted in the recovery room in stable condition. After meeting discharge criteria, the patient was discharged home. Ross Rendon DO JEJ/SCHUYLER <ELECTRONICALLY SIGNED> By: Ross Rendon DO 03/20/21 0759 1518 0003 Ross Rendon DO /nt
== END | disposition home or self-care (01) ==
LOC: PAIN 11:05
PROVIDERS: ATTEND Anesthesiology Pain Medicine
DX: M50.10 Cervical disc disorder with radiculopathy, unspecified cervical region (principal); M48.02 Spinal stenosis, cervical region; M47.22 Other spondylosis with radiculopathy, cervical region; G89.29 Other chronic pain; Z98.890 Other specified postprocedural states; Z79.899 Other long term (current) drug therapy; Z88.8 Allergy status to other drugs, medicaments and biological substances

== ENCOUNTER → 2021-07-09 | Outpatient (CLI) | payer OTHER ==
[~2021-07-09] VITALS: Ht 157.5 cm; Wt 46.2 kg
[~2021-07-09] MED LIST changes: +B COMPLEX1 EACH PO; +PROBIOTIC1 EAC2 PO
[2021-07-09 14:05] VITALS: BP 108/77
--- NOTE | 2021-07-09 14:37 | NUR ---
Pain Clinic Assessment: 1. History of Osteoarthritis: C SPINE History of Rheumatoid Arthritis: Not Applicable 2. Height: 5 ft. 2 in. 157.5 cm. Weight: 101.8 lb. oz. 46.176 kg. Patient's BMI: 18.6 3. Vital Signs: BP: 108/77 Pulse: 82 Resp: 14 Temp: 02 Sat: 98 ECG Mon: 4. Pain Intensity: 7 5. Fall Risk: Dizziness: N Needs help standing or walking: N Fallen in the last 3 months: N Fall risk comments: 6. Patient on Blood Thinner: None 7. History of Hypertension: N 8. Opioid Therapy greater than 6 weeks: N Opiate Contract Signed: 9. Risk Assessment Tool Provided: LOW-1 10. Functional Assessment Tool: 11. Recreational Drug Use: Never Drug Type: Tobacco Use: Never Smoker Tobacco Type: Amount or Packs/day: How Many Years: Alcohol Use: Yes Frequency: Daily Quant: 2-3 WINE
--- NOTE | 2021-07-16 10:15 | HPC ---
[facility] [place] [address] PAIN MANAGEMENT CONSULTATION Name: PADMA MORENO [id number] Admission: 07/09/21 Attend Phys: Ross Rendon DO Discharge: Date of : 74 Report #: [id number] THIS REPORT FOR: cc: Sheila Hamm DNP, Mary E. DNP Johnson, James E. DO ~ cc: RE Hernandez DATE OF SERVICE: 07/09/2021 CHIEF COMPLAINT: Neck pain, right upper extremity pain with paresthesias. HISTORY OF PRESENT ILLNESS: As you know, the patient is a very pleasant 51-year-old female returning today in followup visit with neck pain, right upper extremity pain with paresthesias, for which she is placing pain score at approximately 7/10. The patient indicates the pain is constant, burning pressure, radiating sharp, shooting and heavy in a sensation. Pain is exacerbated with upper body exercise program, riding long distances in car, sitting in a computer, lifting objects with her right upper extremity. Pain is improved with medications, lying down, traction and previous cervical epidural injections. She returns today in followup visit requesting to undergo the next in the series of cervical epidural injections under fluoroscopic guidance. The patient indicates previous injection provided up to 65-70% improvement in overall pain. She returns today in followup visit for next in the series of cervical epidural injections. ALLERGIES: BENADRYL AND NEOMYCIN. CURRENT MEDICATIONS: Ascorbic acid, ibuprofen, sumatriptan, escitalopram and gabapentin. SOCIAL HISTORY: The patient denies tobacco, IV or illicit drug use. Admits to occasional alcohol beverage. She is employed as a registered nurse, working, not receiving workmen's compensation, unaccompanied today. IMAGING: No new imaging available. PHYSICAL EXAMINATION: VITAL SIGNS: Blood pressure is 108/77, pulse is 82, respiratory rate 14 and unlabored. The patient is 98% on room air. Height 5 feet 2 inches tall, weight 101.8 pounds, BMI calculated 18.6. GENERAL: Well-nourished, well-hydrated 51-year-old female appearing stated age, pain is rated today around 7/10. HEENT: Normocephalic, atraumatic. Pupils equal, round and responsive. EXTREMITIES: Show no clubbing, no cyanosis and no edema. MUSCULOSKELETAL: Upper extremity strength remains symmetrical again today 5/5. Muscle bulk and tone is equal in the upper extremities. Spurling's test is [facility] [address] [place] [address] PAIN MANAGEMENT CONSULTATION Name: PADMA MORENO Room #: REG [facility]#: [id number] Admission: 07/09/21 Attend Phys: Ross Rendon DO Discharge: Date of : 74 Report #: [id number] positive on the right, negative left. Deep tendon reflexes are equal and symmetrical at biceps, brachialis and triceps. ASSESSMENT: 1. Symptomatic cervical radiculopathy. 2. Severe neural foraminal stenosis of the cervical spine. 3. Facet arthropathy of cervical spine. 4. Displacement of cervical intervertebral disk with radiculopathy. 5. Cervical degeneration. PLAN: 1. The patient has returned today in followup visit to undergo cervical epidural injection under fluoroscopic guidance. She has noted excellent benefit with previous cervical epidural injection reporting 65-70% improvement in overall pain. Unfortunately, the patient's symptoms have reoccurred. There is no inciting injury or trauma. She returns today in followup visit to undergo next in the series of cervical epidural injections. She has been advised the risks and benefits of the procedure, states understood and wished to proceed. 2. The patient wishes to continue on gabapentin, I provided her 100 mg tablet 3 times a day as needed for pain control. I have given the patient #90 tablets, 2 refills. The patient's prescription was sent via [facility] local pharmacy. 3. We plan to see the patient back in followup visit on an as needed basis for the next in the series of cervical epidural injections. We are hopeful the patient will see good and prolonged benefit with the cervical epidural injection provided today. PROCEDURE NOTE DESCRIPTION OF PROCEDURE: C7-T1 cervical epidural steroid injection under fluoroscopic guidance. After obtaining written consent, the patient was taken back to fluoroscopy suite, placed in prone position with separate pillows under chest and forehead to decrease cervical lordosis. Skin overlying cervical area then prepped and draped in aseptic fashion. C7-T1 cervical interspace identified by AP fluoroscopy. Skin and subcutaneous tissue overlying target site of injection was then anesthetized with 3 mL 1% lidocaine. A 20 gauge 3-1/2 inch Tuohy needle advanced under fluoroscopic guidance towards the epidural space using a right parasagittal approach. Epidural space identified using loss of resistance to air technique. After negative aspiration for heme or cerebrospinal fluid, 1 mL of Omnipaque injected. A cervical epidurogram was confirmed using both AP and oblique fluoroscopy. After negative aspiration for heme or cerebrospinal fluid, 5 mL of a solution containing 2 mL 40 mg per mL 80 mg total triamcinolone along with 3 mL of lidocaine, 1% injected slowly. Needle then retracted approximately long term flushed with 1 mL of 1% [facility] [address] [place] [address] PAIN MANAGEMENT CONSULTATION Name: PADMA MORENO Room #: REG [facility]#: [id number] Admission: 07/09/21 Attend Phys: Ross Rendon DO Discharge: Date of : 74 Report #: [id number] lidocaine, then removed. Sterile bandage placed over injection site. There were no new motor deficits present in the upper extremities following procedure. The patient tolerated the procedure well. Carefully escorted to recovery room in stable condition. No apparent complications. After meeting discharge criteria, the patient discharged home. <ELECTRONICALLY SIGNED> By: Ross Rendon DO 07/16/21 1015 1615 0146 Ross Rendon DO /nt
== END | disposition home or self-care (01) ==
LOC: PAIN 11:09
PROVIDERS: ATTEND Anesthesiology Pain Medicine
DX: M50.10 Cervical disc disorder with radiculopathy, unspecified cervical region (principal); M47.22 Other spondylosis with radiculopathy, cervical region; M48.02 Spinal stenosis, cervical region; Z98.890 Other specified postprocedural states; Z79.899 Other long term (current) drug therapy; Z88.8 Allergy status to other drugs, medicaments and biological substances